=== PATIENT | female | born 1980 | race Two or more races ===

== ENCOUNTER 2018-07-22 00:23 | Inpatient (IN) | payer OTHER, BC ==
[2018-07-22] MEDS ORDERED: Terbutaline 1 MG/ML SDV SUBCUT PRN (01:15)
[2018-07-22] MEDS ORDERED: Nalbuphine 10 MG/1 ML Vial IVPUSH PRN (01:15)
[2018-07-22] MEDS ORDERED: Oxytocin/0.9 % Sodium Chloride 30 UNIT/500 ML BAG IV SCH ×2 (01:15)
[2018-07-22] MEDS ORDERED: Lidocaine 1% 50 ML MDV INJECT PRN (01:15)
[2018-07-22] MEDS ORDERED: Sodium Chloride 0.9% 2.5 ML Syringe FLUSH PRN (01:15)
[2018-07-22] MEDS ORDERED: Sodium Chloride 0.9% 10 ML SDV IV PRN (01:15)
[2018-07-22] MEDS ORDERED: Methylergonovine 0.2 MG/1 ML Amp IM PRN (01:15)
[2018-07-22] MEDS ORDERED: Butorphanol 1 MG/ML SDV IVPUSH PRN (01:15)
[2018-07-22] MEDS ORDERED: Carboprost Tromethamine 250 MCG/1 ML Amp IM PRN (01:15)
[2018-07-22] MEDS ORDERED: Ampicillin 2 GM in Sodium Chloride 0.9% 100 ML IV ONE (01:15)
[2018-07-22] MEDS ORDERED: Tranexamic Acid 1,000 MG in Sodium Chloride 0.9% 100 ML IV PRN (01:15)
[2018-07-22] MEDS ORDERED: Ondansetron 4 MG/2 ML SDV IV PRN (01:15)
[2018-07-22] MEDS ORDERED: Water For Irrigation,Sterile 1,000 ML Container IRR PRN (01:15)
[2018-07-22] MEDS ORDERED: Sodium Chloride 0.9% 10 ML Syringe FLUSH PRN (01:15)
[2018-07-22] MEDS ORDERED: Misoprostol 200 MCG Tab PO PRN (01:15)
[2018-07-22] MEDS: Misoprostol 25 MCG (1/4 of 100 MCG) Tab PO PRN ×2 (02:42→07:51)
[2018-07-22] MEDS: Misoprostol 25 MCG (1/4 of 100 MCG) Tab VAG PRN ×2 (02:42→07:55)
[2018-07-22] MEDS ORDERED: Labetalol 20 MG/4 ML Syringe IVPUSH ONE (02:59)
[2018-07-22] MEDS: Ampicillin 1 GM in Sodium Chloride 0.9% 50 ML IV SCH ×3 (06:25→13:53)
[2018-07-22] MEDS ORDERED: Ampicillin 1 GM in Sodium Chloride 0.9% 50 ML IV ONE (06:30)
[2018-07-22] MEDS: Labetalol 100 MG Tab PO SCH (08:24)
--- NOTE | 2018-07-22 09:24 | PCM.LDHP ---
L&D History of Present Illness - General Date of Service: 07/22/18 Admit Problem/Dx: Patient Status Order with Admit Dx/Problem 07/22/18 01:16 Patient Status [ADT] Routine Admission Diagnosis/Problem Admission Diagnosis/Problem - planned Source of Information: Patient History Limitations: Reports: No Limitations - History of Present Illness Improves with: Reports: None Worsens with: Reports: None Associated Symptoms: Reports: N - Related Data Allergies/Adverse Reactions: Allergies Allergy/AdvReac Type Severity Reaction Status Date / Time No Known Allergies Allergy Verified 06/16/18 10:16 Home Medications: Home Meds Labetalol [Normodyne] 100 mg PO DAILY 06/16/18 [History] Past Medical History - Past Health History Medical/Surgical History: Denies Medical/Surgical History 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 & Family History - Family History Family Medical History: Noncontributory Cardiac: Reports: Hypertension - Tobacco Use Smoking Status *Q: Former Smoker Years of Tobacco use: 10 Used Tobacco, but Quit: No Second Hand Smoke Exposure: No - Caffeine Use Caffeine Use: Reports: Coffee - Recreational Drug Use Recreational Drug Use: No H&P Review of Systems - Review of Systems: Review Of Systems: See Below General: Reports: No Symptoms HEENT: Reports: No Symptoms Pulmonary: Reports: No Symptoms Cardiovascular: Reports: No Symptoms Gastrointestinal: Reports: No Symptoms Genitourinary: Reports: No Symptoms Musculoskeletal: Reports: No Symptoms Skin: Reports: No Symptoms Psychiatric: Reports: No Symptoms Neurological: Reports: No Symptoms Hematologic/Lymphatic: Reports: No Symptoms Immunologic: Reports: No Symptoms L&D Exam - Exam Exam: See Below - Vital Signs Vital Signs: Last Vital Signs Temp Pulse 79 07/22/18 08:24 Resp BP 201/102 H 07/22/18 08:24 Pulse Ox Weight: 62.142 kg - OB Specific Fundal Height In cm: 35 Contraction Intensity: Mild to Moderate Movement: Active Heart Tones: Present Presentation: Vertex - Everett Score Everett Score Cervix Position: Midposition Everett Score Consistency: Soft Everett Score Effacement: 51-70% Everett Score Dilation: 1-2 cm Everett Score Infant's Station: -3 Everett Score Total: 6 - Exam General: Alert, Oriented HEENT: PERRLA, Conjunctiva Clear, EACs Clear, EOMI, Hearing Intact, Mucosa Moist & [place], Nares Patent, Normal Nasal Septum, Posterior Pharynx Clear, TMs Clear Neck: Supple, Trachea Midline Lungs: Clear to Auscultation, Normal Respiratory Effort Cardiovascular: Regular Rate, Regular Rhythm GI/Abdominal Exam: Normal Bowel Sounds, Soft, Non-Tender, No Organomegaly, No Distention, No Abnormal Bruit, No Mass, Pelvis Stable Rectal Exam: Normal Exam, Normal Rectal Tone Genitourinary: Normal external exam, Normal bimanual exam, Normal speculum exam Back Exam: Normal Inspection, Full Range of Motion Extremities: Normal Inspection, Normal Range of Motion, Non-Tender, No Pedal Edema, Normal Capillary Refill Skin: Warm, Dry, Intact Neurological: Cranial Nerves Intact, Reflexes Equal Bilateral Psychiatric: Alert, Normal Affect, Normal Mood - Patient Data Lab Results Last 24 hrs: Laboratory Results - last 24 hr 07/22/18 07/22/18 Range/Units 01:45 01:45 WBC 11.32 H (4.0-11.0) K/uL RBC 4.15 L (4.30-5.90) M/uL Hgb 13.0 (12.0-16.0) g/dL Hct 38.7 (36.0-46.0) % MCV 93.3 (80.0-98.0) fL MCH 31.3 (27.0-32.0) pg MCHC 33.6 (31.0-37.0) g/dL RDW Std Deviation 40.0 (28.0-62.0) fl RDW Coeff of Holly 12 (11.0-15.0) % Plt Count 223 (150-400) K/uL MPV 10.90 (7.40-12.00) fL Blood Type A POSITIVE Antibody Screen NEGATIVE Result Diagrams: 07/22/18 01:45 Problem List Initiated/Reviewed/Updated: Yes Orders Last 24hrs: Active Orders 24 hr Category Date Time Status Patient Status [ADT] Routine ADT 07/22/18 01:16 Active Communication Order [RC] ASDIRECTED Care 07/22/18 01:16 Active Communication Order [RC] ASDIRECTED Care 07/22/18 01:16 Active Communication Order [RC] ASDIRECTED Care 07/22/18 01:16 Active Heart Tones [RC] CONTINUOUS Care 07/22/18 01:16 Active Non Stress Test [RC] PER UNIT ROUTINE Care 07/22/18 01:16 Active May Shower [RC] ASDIRECTED Care 07/22/18 01:16 Active Notify Provider [RC] PRN Care 07/22/18 01:16 Active Notify Provider [RC] PRN Care 07/22/18 01:16 Active Notify Provider [RC] PRN Care 07/22/18 01:16 Active Notify Provider [RC] STAT Care 07/22/18 01:16 Active Up ad Jayashree [RC] ASDIRECTED Care 07/22/18 01:16 Active Vaginal Exam [RC] PRN Care 07/22/18 01:16 Active Vital Signs [RC] PER UNIT ROUTINE Care 07/22/18 01:16 Active Regular Diet [DIET] Diet 07/22/18 Breakfast Active Ampicillin 1 gm Med 07/22/18 06:30 Active Sodium Chloride 0.9% [Normal Saline] 50 ml IV Q4H Butorphanol [Stadol] Med 07/22/18 01:15 Active 1 mg IVPUSH Q1H PRN Carboprost Tromethamine [Hemabate DS] Med 07/22/18 01:15 Active 250 mcg IM ASDIRECTED PRN Labetalol [Normodyne] Med 07/22/18 09:00 Active 100 mg PO BID Lactated Ringers [Ringers, Lactated] 1,000 ml Med 07/22/18 01:15 Active IV ASDIRECTED Lidocaine 1% [Xylocaine 1%] Med 07/22/18 01:15 Active 50 ml INJECT ONETIME PRN Methylergonovine [Methergine] Med 07/22/18 01:15 Active 0.2 mg IM ASDIRECTED PRN Nalbuphine [Nubain] Med 07/22/18 01:15 Active 10 mg IVPUSH Q1H PRN Ondansetron [Zofran] Med 07/22/18 01:15 Active 4 mg IV Q4H PRN Oxytocin/0.9 % Sodium Chloride [Oxytocin 30 Unit/500 ML Med 07/22/18 01:15 Active -NS] 30 unit in 500 ml IV TITRATE Oxytocin/0.9 % Sodium Chloride [Oxytocin 30 Unit/500 ML Med 07/22/18 01:15 Active -NS] 30 unit in 500 ml IV TITRATE Sodium Chloride 0.9% [Normal Saline] Med 07/22/18 01:15 Active 10 ml IV ASDIRECTED PRN Sodium Chloride 0.9% [Saline Flush] Med 07/22/18 01:15 Active 10 ml FLUSH ASDIRECTED PRN Sodium Chloride 0.9% [Saline Flush] Med 07/22/18 01:15 Active 2.5 ml FLUSH ASDIRECTED PRN Terbutaline [Brethine] Med 07/22/18 01:15 Active 0.25 mg SUBCUT ASDIRECTED PRN Tranexamic Acid [Cyklokapron] 1,000 mg Med 07/22/18 01:15 Active Sodium Chloride 0.9% [Normal Saline] 100 ml IV ONETIME Water For Irrigation,Sterile [Sterile Water for Med 07/22/18 01:15 Active Irrigation] 1,000 ml IRR ASDIRECTED PRN miSOPROStol [Cytotec] Med 07/22/18 01:15 Active 200 mcg PO ONETIME PRN miSOPROStol [Cytotec] Med 07/22/18 01:15 Active 25 mcg PO Q4H PRN miSOPROStol [Cytotec] Med 07/22/18 01:15 Active 25 mcg VAG Q4H PRN Scalp Electrode [WOMSER] Per Unit Routine Oth 07/22/18 01:16 Ordered Medication Administration Instruction [OM.PC] Q3H Oth 07/22/18 01:30 Ordered Peripheral IV Insertion Adult [OM.PC] Routine Oth 07/22/18 01:16 Ordered Resuscitation Status Routine Resus Stat 07/22/18 01:15 Ordered Medication Orders Butorphanol Tartrate (Stadol) 1 mg IVPUSH Q1H PRN PRN Reason: Pain Carboprost Tromethamine (Hemabate Ds) 250 mcg IM ASDIRECTED PRN PRN Reason: Post Hemorrhage Lactated Ringer's (Ringers, Lactated) 1,000 mls @ 150 mls/hr IV ASDIRECTED [facility] Oxytocin/Sodium Chloride (Oxytocin 30 Unit/500 Ml-Ns) 30 unit in 500 mls @ 500 mls/hr IV TITRATE [facility]O Oxytocin/Sodium Chloride (Oxytocin 30 Unit/500 Ml-Ns) 30 unit in 500 mls @ 2 mls/hr IV TITRATE [facility]ALO; Protocol Tranexamic Acid 1,000 mg/ (Sodium Chloride) 110 mls @ 660 mls/hr IV ONETIME PRN PRN Reason: Bleeding Ampicillin Sodium 1 gm/ Sodium (Chloride) 50 mls @ 100 mls/hr IV Q4H [facility] Last Admin: 07/22/18 06:25 Dose: 100 mls/hr Labetalol HCl (Normodyne) 100 mg PO BID [facility] Last Admin: 07/22/18 08:24 Dose: 100 mg Lidocaine HCl (Xylocaine 1%) 50 ml INJECT ONETIME PRN PRN Reason: Laceration repair Methylergonovine Maleate (Methergine) 0.2 mg IM ASDIRECTED PRN PRN Reason: Post Hemorrhage Misoprostol (Cytotec) 200 mcg PO ONETIME PRN PRN Reason: Post Hemorrhage Misoprostol (Cytotec) 25 mcg PO Q4H PRN PRN Reason: Cervical Ripening Last Admin: 07/22/18 07:51 Dose: 25 mcg Admin: 07/22/18 02:42 Dose: 25 mcg Misoprostol (Cytotec) 25 mcg VAG Q4H PRN PRN Reason: Cervical Ripening Last Admin: 07/22/18 07:55 Dose: 25 mcg Admin: 07/22/18 02:42 Dose: 25 mcg Nalbuphine HCl (Nubain) 10 mg IVPUSH Q1H PRN PRN Reason: Pain (severe 7-10) Ondansetron HCl (Zofran) 4 mg IV Q4H PRN PRN Reason: Nausea/Vomiting Sodium Chloride (Saline Flush) 10 ml FLUSH ASDIRECTED PRN PRN Reason: Keep Vein Open Sodium Chloride (Saline Flush) 2.5 ml FLUSH ASDIRECTED PRN PRN Reason: Keep Vein Open Sodium Chloride (Normal Saline) 10 ml IV ASDIRECTED PRN PRN Reason: IV Use Sterile Water (Sterile Water For Irrigation) 1,000 ml IRR ASDIRECTED PRN PRN Reason: delivery Terbutaline Sulfate (Brethine) 0.25 mg SUBCUT ASDIRECTED PRN PRN Reason: Tacysystole Assessment/Plan Comment:: Chronic Hypertension, IUP 36 wks admitted for elective induction.
[2018-07-22] MEDS ORDERED: Bupivacaine 0.5% 10 ML SDV ONE (12:03)
[2018-07-22] MEDS ORDERED: fentaNYL 100 MCG/2 ML SDV ONE (12:03)
[2018-07-22] MEDS ORDERED: Lidocaine HCl/EPINEPHrine 5 ML IJ ONE (12:04)
[2018-07-22] MEDS ORDERED: Bupivacaine 0.25% 10 ML SDV ONE (12:04)
[2018-07-22] MEDS: Lactated Ringers 1,000 ML IV SCH ×2 (12:23→15:25)
--- NOTE | 2018-07-22 13:14 | PCM.PREANE ---
Preanesthetic Assessment - Anesthesia/Transfusion/Family Hx Anesthesia History: Prior Anesthesia Reaction (history of difficult epidural placement) Family History of Anesthesia Reaction: No Transfusion History: No Prior Transfusion(s) - Review of Systems Pulmonary: No Symptoms Cardiovascular: Other (uncontrolled high blood pressure) Gastrointestinal: Nausea, Vomiting Neurological: Dizziness (patient got dizzy after stadol given) Other: Reports: None - Physical Assessment Pulse: 79 Blood Pressure: 201/102 Vital Signs: Last Vital Signs Temp Pulse 79 07/22/18 08:24 Resp BP 201/102 H 07/22/18 08:24 Pulse Ox Height: 5 ft 2 in Weight: 62.142 kg ASA Class: 3 (uncontrolled hypertension) Mental Status: Alert & Oriented x3 Airway Class: Mallampati = 2 Dentition: Reports: Normal Dentition ROM/Head Extension: Full Lungs: Clear to Auscultation Cardiovascular: Regular Rhythm - Lab Values: Laboratory Last Values WBC 11.32 K/uL (4.0-11.0) H 07/22/18 01:45 RBC 4.15 M/uL (4.30-5.90) L 07/22/18 01:45 Hgb 13.0 g/dL (12.0-16.0) 07/22/18 01:45 Hct 38.7 % (36.0-46.0) 07/22/18 01:45 MCV 93.3 fL (80.0-98.0) 07/22/18 01:45 MCH 31.3 pg (27.0-32.0) 07/22/18 01:45 MCHC 33.6 g/dL (31.0-37.0) 07/22/18 01:45 RDW Std Deviation 40.0 fl (28.0-62.0) 07/22/18 01:45 RDW Coeff of Holly 12 % (11.0-15.0) 07/22/18 01:45 Plt Count 223 K/uL (150-400) 07/22/18 01:45 MPV 10.90 fL (7.40-12.00) 07/22/18 01:45 Blood Type A POSITIVE 07/22/18 01:45 Antibody Screen NEGATIVE 07/22/18 01:45 - Allergies Allergies/Adverse Reactions: Allergies Allergy/AdvReac Type Severity Reaction Status Date / Time No Known Allergies Allergy Verified 06/16/18 10:16 - Blood Blood Available: No - Acknowledgements Anesthesia Type Planned: Epidural Pt an Appropriate Candidate for the Planned Anesthesia: Yes Alternatives and Risks of Anesthesia Discussed w Pt/Guardian: Yes Pt/Guardian Understands and Agrees with Anesthesia Plan: Yes Additional Comments: Discussed the risks and benefits of epidural placement. Discussed with the patient that she is at a higher risk of complications due to her uncontrolled HTN. Agrees to go forth with the epidural placement thinking her blood pressure will decrease once epidural inserted due to pain control. 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 Smoking Status *Q: Former Smoker Tobacco Use Within Last Twelve Months: No Second Hand Smoke Exposure: No Recreational Drug Use History: No - HOME MEDS Home Medications: Home Meds Labetalol [Normodyne] 100 mg PO DAILY 06/16/18 [History] - CURRENT (IN HOUSE) MEDS Current Meds: Current Medications Butorphanol Tartrate (Stadol) 1 mg IVPUSH Q1H PRN PRN Reason: Pain Last Admin: 07/22/18 10:51 Dose: 1 mg Carboprost Tromethamine (Hemabate Ds) 250 mcg IM ASDIRECTED PRN PRN Reason: Post Hemorrhage Lactated Ringer's (Ringers, Lactated) 1,000 mls @ 150 mls/hr IV ASDIRECTED [facility] Last Admin: 07/22/18 12:23 Dose: 999 mls/hr Oxytocin/Sodium Chloride (Oxytocin 30 Unit/500 Ml-Ns) 30 unit in 500 mls @ 500 mls/hr IV TITRATE [facility] Oxytocin/Sodium Chloride (Oxytocin 30 Unit/500 Ml-Ns) 30 unit in 500 mls @ 2 mls/hr IV TITRATE [facility]; Protocol Tranexamic Acid 1,000 mg/ (Sodium Chloride) 110 mls @ 660 mls/hr IV ONETIME PRN PRN Reason: Bleeding Ampicillin Sodium 1 gm/ Sodium (Chloride) 50 mls @ 100 mls/hr IV Q4H [facility] Last Admin: 07/22/18 10:00 Dose: 100 mls/hr Labetalol HCl (Normodyne) 100 mg PO BID [facility] Last Admin: 07/22/18 08:24 Dose: 100 mg Lidocaine HCl (Xylocaine 1%) 50 ml INJECT ONETIME PRN PRN Reason: Laceration repair Methylergonovine Maleate (Methergine) 0.2 mg IM ASDIRECTED PRN PRN Reason: Post Hemorrhage Misoprostol (Cytotec) 200 mcg PO ONETIME PRN PRN Reason: Post Hemorrhage Misoprostol (Cytotec) 25 mcg PO Q4H PRN PRN Reason: Cervical Ripening Last Admin: 07/22/18 07:51 Dose: 25 mcg Misoprostol (Cytotec) 25 mcg VAG Q4H PRN PRN Reason: Cervical Ripening Last Admin: 07/22/18 07:55 Dose: 25 mcg Nalbuphine HCl (Nubain) 10 mg IVPUSH Q1H PRN PRN Reason: Pain (severe 7-10) Ondansetron HCl (Zofran) 4 mg IV Q4H PRN PRN Reason: Nausea/Vomiting Sodium Chloride (Saline Flush) 10 ml FLUSH ASDIRECTED PRN PRN Reason: Keep Vein Open Sodium Chloride (Saline Flush) 2.5 ml FLUSH ASDIRECTED PRN PRN Reason: Keep Vein Open Sodium Chloride (Normal Saline) 10 ml IV ASDIRECTED PRN PRN Reason: IV Use Sterile Water (Sterile Water For Irrigation) 1,000 ml IRR ASDIRECTED PRN PRN Reason: delivery Terbutaline Sulfate (Brethine) 0.25 mg SUBCUT ASDIRECTED PRN PRN Reason: Tacysystole Discontinued Medications Bupivacaine HCl (Sensorcaine-Mpf 0.5%) Confirm Administered Dose 10 ml .ROUTE .STK-MED ONE Stop: 07/22/18 12:04 Bupivacaine HCl (Sensorcaine-Mpf 0.25%) Confirm Administered Dose 10 ml .ROUTE .STK-MED ONE Stop: 07/22/18 12:05 Fentanyl (Sublimaze) Confirm Administered Dose 100 mcg .ROUTE .STK-MED ONE Stop: 07/22/18 12:04 Ampicillin Sodium 2 gm/ Sodium (Chloride) 100 mls @ 200 mls/hr IV ONETIME ONE Stop: 07/22/18 01:44 Last Admin: 07/22/18 02:50 Dose: 200 mls/hr Ampicillin Sodium 1 gm/ Sodium (Chloride) 50 mls @ 100 mls/hr IV ONETIME ONE Stop: 07/22/18 06:59 Fentanyl/Bupivacaine HCl (Hpxexixa-Vshru-Nk 2 Mcg/Ml-0.125%) Confirm Administered Dose 100 mls @ as directed .ROUTE .STK-MED ONE Stop: 07/22/18 12:04 Labetalol HCl (Normodyne) 20 mg IVPUSH NOW ONE; Protocol Stop: 07/22/18 03:00 Last Admin: 07/22/18 03:14 Dose: 20 mg Lidocaine/Epinephrine (Lidocaine 1.5%-Epi 1:200,000) Confirm Administered Dose 5 ml IJ .STK-MED ONE Stop: 07/22/18 12:05
[2018-07-22] MEDS ORDERED: Bisacodyl 10 MG Supp RECTAL PRN (16:00)
[2018-07-22] MEDS ORDERED: Benzocaine/Menthol 20%-0.5% Spray 78 GM Cannister TOP PRN (16:00)
[2018-07-22] MEDS ORDERED: Docusate Sodium 100 MG Cap PO PRN (16:00)
[2018-07-22] MEDS ORDERED: Witch Hazel Medicated Pads 40/Jar TOP PRN (16:00)
[2018-07-22] MEDS ORDERED: Lanolin 100% Cream 7 GM Tube TOP PRN (16:00)
[2018-07-22] MEDS ORDERED: oxyCODONE 5 MG Tab PO PRN (16:00)
[2018-07-22] MEDS ORDERED: Acetaminophen 500 MG Tab PO PRN ×2 (16:00)
[2018-07-22] MEDS ORDERED: Ibuprofen 400 MG Tab PO PRN (16:00)
[2018-07-22] MEDS ORDERED: Labetalol 100 MG Tab PO ONE (16:08)
--- NOTE | 2018-07-22 17:37 | OR ---
SURGEON: Roshan Wilburn MD DATE OF PROCEDURE: 07/22/2018 Ms. Singh is a 38-year-old patient. She is para 2-0-0-2. She is followed in our clinic primarily by me. Her is complicated by chronic hypertension. The patient was on medication prior to that, and we continued her on her medication. The patient started having scheduled regular NST at 30 weeks and all her NST was reactive at 36 weeks. The patient is admitted for elective induction because her blood pressures continued to go up slowly in spite of the antihypertensive medication. The patient is induced with Cytotec and Pitocin, and she had epidural anesthesia for labor analgesia. I did artificial rupture of the membrane at 3 cm. The patient's blood pressure was fluctuating up and down through the entire process of labor. She progressed rather quickly after rupturing her membrane and she was able to accomplish a normal spontaneous vaginal delivery of a male fetus, cried immediately. scores of 7 and 9. The placenta delivered spontaneous, complete, and intact. There was no perineal or labial laceration. Estimated blood loss in this delivery was 300 mL. heart rate was category 1 through the entire process of labor. There was no complication in the Labor and Delivery. SEAN / CYNTHIA /[id number]
--- NOTE | 2018-07-23 08:09 | PCM.PNPP ---
- General Info Date of Service: 07/23/18 Functional Status: Reports: Pain Controlled - Review of Systems General: Reports: No Symptoms HEENT: Reports: No Symptoms Pulmonary: Reports: No Symptoms Cardiovascular: Reports: No Symptoms Gastrointestinal: Reports: No Symptoms Genitourinary: Reports: No Symptoms Musculoskeletal: Reports: No Symptoms Skin: Reports: No Symptoms Neurological: Reports: No Symptoms Psychiatric: Reports: No Symptoms - Patient Data Vital Signs - Most Recent: Last Vital Signs Temp 36.6 C 07/23/18 05:20 Pulse 67 07/23/18 05:20 Resp 16 07/23/18 05:20 BP 171/92 H 07/23/18 05:20 Pulse Ox 98 07/23/18 05:20 Weight - Most Recent: 62.142 kg I&O - Last 24 Hours: Intake & Output 07/22/18 07/23/18 07/23/18 22:59 06:59 14:59 Intake Total 1650 Balance 1650 Lab Results - Last 24 Hours: Laboratory Results - last 24 hr 07/23/18 Range/Units 05:30 Hgb 11.1 L (12.0-16.0) g/dL Hct 32.9 L (36.0-46.0) % Med Orders - Current: Current Medications Acetaminophen (Tylenol Extra Strength) 500 mg PO Q4H PRN PRN Reason: Pain Acetaminophen (Tylenol Extra Strength) 1,000 mg PO Q4H PRN PRN Reason: Pain Benzocaine/Menthol (Dermoplast Pain Relief 20%-0.5% [place]) 78 gm TOP ASDIRECTED PRN PRN Reason: Perineal Comfort Measure Last Admin: 07/22/18 16:17 Dose: 1 canister Bisacodyl (Dulcolax) 10 mg RECTAL ONETIME PRN PRN Reason: Constipation Butorphanol Tartrate (Stadol) 1 mg IVPUSH Q1H PRN PRN Reason: Pain Last Admin: 07/22/18 10:51 Dose: 1 mg Carboprost Tromethamine (Hemabate Ds) 250 mcg IM ASDIRECTED PRN PRN Reason: Post Hemorrhage Docusate Sodium (Colace) 100 mg PO BID PRN PRN Reason: Constipation Emollient Ointment (Lansinoh Hpa) 0 gm TOP ASDIRECTED PRN PRN Reason: Sore Nipples Lisinopril/HCTZ (Lisinopril-Hctz 10-12.5 Mg) 1 tab PO DAILY [facility] Lactated Ringer's (Ringers, Lactated) 1,000 mls @ 150 mls/hr IV ASDIRECTED [facility] Last Admin: 07/22/18 15:25 Dose: 999 mls/hr Oxytocin/Sodium Chloride (Oxytocin 30 Unit/500 Ml-Ns) 30 unit in 500 mls @ 500 mls/hr IV TITRATE [facility] Oxytocin/Sodium Chloride (Oxytocin 30 Unit/500 Ml-Ns) 30 unit in 500 mls @ 2 mls/hr IV TITRATE [facility]; Protocol Last Titration: 07/22/18 13:37 Dose: 4 munits/min, 4 mls/hr Tranexamic Acid 1,000 mg/ (Sodium Chloride) 110 mls @ 660 mls/hr IV ONETIME PRN PRN Reason: Bleeding Ampicillin Sodium 1 gm/ Sodium (Chloride) 50 mls @ 100 mls/hr IV Q4H [facility] Last Admin: 07/22/18 13:53 Dose: 100 mls/hr Ibuprofen (Motrin) 400 mg PO Q4H PRN PRN Reason: Pain Ibuprofen (Motrin) 800 mg PO Q6H PRN PRN Reason: Pain Labetalol HCl (Normodyne) 100 mg PO BID [facility] Last Admin: 07/22/18 08:24 Dose: 100 mg Lidocaine HCl (Xylocaine 1%) 50 ml INJECT ONETIME PRN PRN Reason: Laceration repair Methylergonovine Maleate (Methergine) 0.2 mg IM ASDIRECTED PRN PRN Reason: Post Hemorrhage Misoprostol (Cytotec) 200 mcg PO ONETIME PRN PRN Reason: Post Hemorrhage Misoprostol (Cytotec) 25 mcg PO Q4H PRN PRN Reason: Cervical Ripening Last Admin: 07/22/18 07:51 Dose: 25 mcg Misoprostol (Cytotec) 25 mcg VAG Q4H PRN PRN Reason: Cervical Ripening Last Admin: 07/22/18 07:55 Dose: 25 mcg Nalbuphine HCl (Nubain) 10 mg IVPUSH Q1H PRN PRN Reason: Pain (severe 7-10) Ondansetron HCl (Zofran) 4 mg IV Q4H PRN PRN Reason: Nausea/Vomiting Oxycodone HCl (Oxycodone) 5 mg PO Q2H PRN PRN Reason: Pain Sodium Chloride (Saline Flush) 10 ml FLUSH ASDIRECTED PRN PRN Reason: Keep Vein Open Sodium Chloride (Saline Flush) 2.5 ml FLUSH ASDIRECTED PRN PRN Reason: Keep Vein Open Sodium Chloride (Normal Saline) 10 ml IV ASDIRECTED PRN PRN Reason: IV Use Sterile Water (Sterile Water For Irrigation) 1,000 ml IRR ASDIRECTED PRN PRN Reason: delivery Terbutaline Sulfate (Brethine) 0.25 mg SUBCUT ASDIRECTED PRN PRN Reason: Tacysystole Witch Irene (Tucks) 1 pad TOP ASDIRECTED PRN PRN Reason: comfort care Discontinued Medications Bupivacaine HCl (Sensorcaine-Mpf 0.5%) Confirm Administered Dose 10 ml .ROUTE .STK-MED ONE Stop: 07/22/18 12:04 Bupivacaine HCl (Sensorcaine-Mpf 0.25%) Confirm Administered Dose 10 ml .ROUTE .STK-MED ONE Stop: 07/22/18 12:05 Fentanyl (Sublimaze) Confirm Administered Dose 100 mcg .ROUTE .STK-MED ONE Stop: 07/22/18 12:04 Ampicillin Sodium 2 gm/ Sodium (Chloride) 100 mls @ 200 mls/hr IV ONETIME ONE Stop: 07/22/18 01:44 Last Admin: 07/22/18 02:50 Dose: 200 mls/hr Ampicillin Sodium 1 gm/ Sodium (Chloride) 50 mls @ 100 mls/hr IV ONETIME ONE Stop: 07/22/18 06:59 Fentanyl/Bupivacaine HCl (Zwbebfat-Gbiao-Xb 2 Mcg/Ml-0.125%) Confirm Administered Dose 100 mls @ as directed .ROUTE .STK-MED ONE Stop: 07/22/18 12:04 Labetalol HCl (Normodyne) 20 mg IVPUSH NOW ONE; Protocol Stop: 07/22/18 03:00 Last Admin: 07/22/18 03:14 Dose: 20 mg Labetalol HCl (Normodyne) 100 mg PO STAT ONE Stop: 07/22/18 16:09 Last Admin: 07/22/18 16:15 Dose: 100 mg Lidocaine/Epinephrine (Lidocaine 1.5%-Epi 1:200,000) Confirm Administered Dose 5 ml IJ .STK-MED ONE Stop: 07/22/18 12:05 - Infant Interaction Support Person: - Recovery Exam Fundal Tone: Firm, Firms with Massage Fundal Level: 1 Fingerbreadths Below Umbilicus Fundal Placement: Midline Lochia Amount: Small, Moderate, Clots/Tissue Present Lochia Color: Rubra/Red Perineum Description: Intact, Minimal Bruising/Swelling Episiotomy/Laceration: None Bladder Status: Voiding Urinary Elimination: Voided - Exam General: Alert, Oriented HEENT: Pupils Equal Neck: Supple Lungs: Clear to Auscultation, Normal Respiratory Effort Cardiovascular: Regular Rate, Regular Rhythm GI/Abdominal Exam: Normal Bowel Sounds, Soft, Non-Tender, No Organomegaly, No Distention, No Abnormal Bruit, No Mass, Pelvis Stable Extremities: Normal Inspection, Normal Range of Motion, Non-Tender, No Pedal Edema, Normal Capillary Refill Skin: Warm, Dry, Intact Wound/Incisions: Healing Well Neurological: No New Focal Deficit Psy/Mental Status: Alert, Normal Affect, Normal Mood - Problem List Review Problem List Initiated/Reviewed/Updated: Yes - My Orders Last 24 Hours: My Active Orders 07/22/18 09:00 Labetalol [Normodyne] 100 mg PO BID 07/22/18 16:00 Acetaminophen [Tylenol Extra Strength] 1,000 mg PO Q4H PRN Acetaminophen [Tylenol Extra Strength] 500 mg PO Q4H PRN Benzocaine/Menthol [Dermoplast Pain Relief 20%-0.5% [place]] 78 gm TOP ASDIRECTED PRN Bisacodyl [Dulcolax] 10 mg RECTAL ONETIME PRN Docusate Sodium [Colace] 100 mg PO BID PRN Ibuprofen [Motrin] 400 mg PO Q4H PRN Ibuprofen [Motrin] 800 mg PO Q6H PRN Lanolin [Lansinoh HPA] See Dose Instructions TOP ASDIRECTED PRN Witch Irene [Tucks] 1 pad TOP ASDIRECTED PRN oxyCODONE 5 mg PO Q2H PRN 07/22/18 16:01 Patient Status [ADT] Routine Up ad Jayashree [RC] ASDIRECTED Vital Signs [RC] PER UNIT ROUTINE Assess Lochia [WOMSER] Per Unit Routine Assess Uterine Involution [WOMSER] Per Unit Routine Peripheral IV Discontinue [OM.PC] Routine 07/23/18 09:00 Lisinopril/Hydrochlorothiazide [Lisinopril-HCTZ 10-12.5 MG] 1 tab PO DAILY - Assessment Assessment:: I'm starting the patient on hydrochlorothiazide and lisinopril to control her blood pressure. - Plan Plan:: Chronic Hypertension, IUP 36 wks admitted for elective induction.
[2018-07-23] MEDS: Ibuprofen 800 MG Tab PO PRN (08:59)
[2018-07-23] MEDS: Labetalol 100 MG Tab PO SCH (09:00)
[2018-07-23] MEDS: Lisinopril/Hydrochlorothiazide 10-12.5 MG Tab PO SCH (09:00)
[2018-07-23] MEDS: Ampicillin 1 GM in Sodium Chloride 0.9% 50 ML IV SCH ×2 (10:06→10:07)
[2018-07-24] MEDS: Labetalol 100 MG Tab PO SCH ×2 (00:53→08:57)
[2018-07-24] MEDS: Ibuprofen 800 MG Tab PO PRN (00:54)
[2018-07-24] MEDS: Ampicillin 1 GM in Sodium Chloride 0.9% 50 ML IV SCH (03:39)
[2018-07-24] MEDS: Lisinopril/Hydrochlorothiazide 10-12.5 MG Tab PO SCH (08:57)
--- NOTE | 2018-07-24 11:35 | PCM.DCSUM1 ---
Discharge Summary - Hospital Course Diagnosis: Stroke: No - Discharge Data Discharge Date: 07/24/18 Discharge Disposition: Home, Self-Care 01 Condition: Good - Patient Instructions Diet: Usual Diet as Tolerated Driving: Do Not Drive Showering/Bathing: May Shower - Discharge Plan Home Medications: Home Meds Labetalol [Normodyne] 100 mg PO DAILY 06/16/18 [History] Referrals: [facility] [Outside] Roshan Wilburn MD [Physician] - 09/03/18 1:30 pm - Discharge Summary/Plan Comment DC Time >30 min.: Yes - General Info Date of Service: 07/24/18 Functional Status: Reports: Pain Controlled - Review of Systems General: Reports: No Symptoms HEENT: Reports: No Symptoms Pulmonary: Reports: No Symptoms Cardiovascular: Reports: No Symptoms Gastrointestinal: Reports: No Symptoms Genitourinary: Reports: No Symptoms Musculoskeletal: Reports: No Symptoms Skin: Reports: No Symptoms Neurological: Reports: No Symptoms Psychiatric: Reports: No Symptoms - Patient Data Vitals - Most Recent: Last Vital Signs Temp 36.4 C 07/24/18 07:00 Pulse 63 07/24/18 08:57 Resp 14 07/24/18 07:00 BP 175/88 H 07/24/18 08:57 Pulse Ox 99 07/24/18 07:00 Weight - Most Recent: 62.142 kg Med Orders - Current: Current Medications Acetaminophen (Tylenol Extra Strength) 500 mg PO Q4H PRN PRN Reason: Pain Acetaminophen (Tylenol Extra Strength) 1,000 mg PO Q4H PRN PRN Reason: Pain Last Admin: 07/23/18 20:42 Dose: 1,000 mg Benzocaine/Menthol (Dermoplast Pain Relief 20%-0.5% [place]) 78 gm TOP ASDIRECTED PRN PRN Reason: Perineal Comfort Measure Last Admin: 07/22/18 16:17 Dose: 1 canister Bisacodyl (Dulcolax) 10 mg RECTAL ONETIME PRN PRN Reason: Constipation Butorphanol Tartrate (Stadol) 1 mg IVPUSH Q1H PRN PRN Reason: Pain Last Admin: 07/22/18 10:51 Dose: 1 mg Carboprost Tromethamine (Hemabate Ds) 250 mcg IM ASDIRECTED PRN PRN Reason: Post Hemorrhage Docusate Sodium (Colace) 100 mg PO BID PRN PRN Reason: Constipation Emollient Ointment (Lansinoh Hpa) 0 gm TOP ASDIRECTED PRN PRN Reason: Sore Nipples Lisinopril/HCTZ (Lisinopril-Hctz 10-12.5 Mg) 1 tab PO DAILY [facility] Last Admin: 07/24/18 08:57 Dose: 1 tab Lactated Ringer's (Ringers, Lactated) 1,000 mls @ 150 mls/hr IV ASDIRECTED [facility] Last Admin: 07/22/18 15:25 Dose: 999 mls/hr Oxytocin/Sodium Chloride (Oxytocin 30 Unit/500 Ml-Ns) 30 unit in 500 mls @ 500 mls/hr IV TITRATE LALO Oxytocin/Sodium Chloride (Oxytocin 30 Unit/500 Ml-Ns) 30 unit in 500 mls @ 2 mls/hr IV TITRATE [facility]; Protocol Last Titration: 07/22/18 13:37 Dose: 4 munits/min, 4 mls/hr Tranexamic Acid 1,000 mg/ (Sodium Chloride) 110 mls @ 660 mls/hr IV ONETIME PRN PRN Reason: Bleeding Ibuprofen (Motrin) 400 mg PO Q4H PRN PRN Reason: Pain Ibuprofen (Motrin) 800 mg PO Q6H PRN PRN Reason: Pain Last Admin: 07/24/18 00:54 Dose: 800 mg Labetalol HCl (Normodyne) 100 mg PO BID [facility] Last Admin: 07/24/18 08:57 Dose: 100 mg Lidocaine HCl (Xylocaine 1%) 50 ml INJECT ONETIME PRN PRN Reason: Laceration repair Methylergonovine Maleate (Methergine) 0.2 mg IM ASDIRECTED PRN PRN Reason: Post Hemorrhage Misoprostol (Cytotec) 200 mcg PO ONETIME PRN PRN Reason: Post Hemorrhage Misoprostol (Cytotec) 25 mcg PO Q4H PRN PRN Reason: Cervical Ripening Last Admin: 07/22/18 07:51 Dose: 25 mcg Misoprostol (Cytotec) 25 mcg VAG Q4H PRN PRN Reason: Cervical Ripening Last Admin: 07/22/18 07:55 Dose: 25 mcg Nalbuphine HCl (Nubain) 10 mg IVPUSH Q1H PRN PRN Reason: Pain (severe 7-10) Ondansetron HCl (Zofran) 4 mg IV Q4H PRN PRN Reason: Nausea/Vomiting Oxycodone HCl (Oxycodone) 5 mg PO Q2H PRN PRN Reason: Pain Last Admin: 07/24/18 00:53 Dose: 5 mg Sodium Chloride (Saline Flush) 10 ml FLUSH ASDIRECTED PRN PRN Reason: Keep Vein Open Sodium Chloride (Saline Flush) 2.5 ml FLUSH ASDIRECTED PRN PRN Reason: Keep Vein Open Sodium Chloride (Normal Saline) 10 ml IV ASDIRECTED PRN PRN Reason: IV Use Sterile Water (Sterile Water For Irrigation) 1,000 ml IRR ASDIRECTED PRN PRN Reason: delivery Terbutaline Sulfate (Brethine) 0.25 mg SUBCUT ASDIRECTED PRN PRN Reason: Tacysystole Witch Irene (Tucks) 1 pad TOP ASDIRECTED PRN PRN Reason: comfort care Discontinued Medications Bupivacaine HCl (Sensorcaine-Mpf 0.5%) Confirm Administered Dose 10 ml .ROUTE .STK-MED ONE Stop: 07/22/18 12:04 Last Admin: 07/23/18 09:16 Dose: Not Given Bupivacaine HCl (Sensorcaine-Mpf 0.25%) Confirm Administered Dose 10 ml .ROUTE .STK-MED ONE Stop: 07/22/18 12:05 Last Admin: 07/23/18 09:17 Dose: Not Given Fentanyl (Sublimaze) Confirm Administered Dose 100 mcg .ROUTE .STK-MED ONE Stop: 07/22/18 12:04 Last Admin: 07/23/18 09:16 Dose: Not Given Ampicillin Sodium 2 gm/ Sodium (Chloride) 100 mls @ 200 mls/hr IV ONETIME ONE Stop: 07/22/18 01:44 Last Admin: 07/22/18 02:50 Dose: 200 mls/hr Ampicillin Sodium 1 gm/ Sodium (Chloride) 50 mls @ 100 mls/hr IV ONETIME ONE Stop: 07/22/18 06:59 Ampicillin Sodium 1 gm/ Sodium (Chloride) 50 mls @ 100 mls/hr IV Q4H [facility] Last Admin: 07/24/18 03:39 Dose: Not Given Fentanyl/Bupivacaine HCl (Rqpaocfh-Qzewb-Xp 2 Mcg/Ml-0.125%) Confirm Administered Dose 100 mls @ as directed .ROUTE .STK-MED ONE Stop: 07/22/18 12:04 Last Admin: 07/23/18 09:16 Dose: Not Given Labetalol HCl (Normodyne) 20 mg IVPUSH NOW ONE; Protocol Stop: 07/22/18 03:00 Last Admin: 07/22/18 03:14 Dose: 20 mg Labetalol HCl (Normodyne) 100 mg PO STAT ONE Stop: 07/22/18 16:09 Last Admin: 07/22/18 16:15 Dose: 100 mg Lidocaine/Epinephrine (Lidocaine 1.5%-Epi 1:200,000) Confirm Administered Dose 5 ml IJ .STK-MED ONE Stop: 07/22/18 12:05 Last Admin: 07/23/18 09:16 Dose: Not Given - Exam General: Reports: Alert, Oriented HEENT: Reports: Pupils Equal, Pupils Reactive, EOMI, Mucous Membr. Moist/[place] Neck: Reports: Supple Lungs: Reports: Clear to Auscultation, Normal Respiratory Effort Cardiovascular: Reports: Regular Rate, Regular Rhythm GI/Abdominal Exam: Normal Bowel Sounds, Soft, Non-Tender, No Organomegaly, No Distention, No Abnormal Bruit, No Mass, Pelvis Stable (Female) Exam: Normal External Exam, Normal Speculum Exam, Normal Bimanual Exam Rectal (Female) Exam: Normal Exam, Normal Rectal Tone Back Exam: Reports: Normal Inspection, Full Range of Motion Extremities: Normal Inspection, Normal Range of Motion, Non-Tender, No Pedal Edema, Normal Capillary Refill Skin: Reports: Warm, Dry, Intact Wound/Incisions: Reports: Healing Well Neurological: Reports: No New Focal Deficit Psy/Mental Status: Reports: Alert, Normal Affect, Normal Mood
== END 2018-07-24 12:50 | disposition home or self-care (01) | DRG 807 ==
LOC: MW.OBCHECK 00:23 → MW.OB 00:27 → INTOOBSV 14:43 → OBSVTOIN 14:43 → MW.OB 15:43 → INTOOBSV 15:43 → OBSVTOIN 15:43 → MW.OB 18:35
PROVIDERS: ADMIT Obstetrics & Gynecology; ATTEND Obstetrics & Gynecology
PROC: 10E0XZZ Delivery of Products of Conception, External Approach (ICD-10-PCS; principal; 2018-07-22)
PROC: 3E033VJ Introduction of Other Hormone into Peripheral Vein, Percutaneous Approach (ICD-10-PCS; principal; 2018-07-22)
PROC: 3E0P7VZ Introduction of Hormone into Female Reproductive, Via Natural or Artificial Opening (ICD-10-PCS; principal; 2018-07-22)
PROC: 10907ZC Drainage of Amniotic Fluid, Therapeutic from Products of Conception, Via Natural or Artificial Opening (ICD-10-PCS; principal; 2018-07-22)
PROC: 3E0R3BZ Introduction of Anesthetic Agent into Spinal Canal, Percutaneous Approach (ICD-10-PCS; 2018-07-22)
PROC: 00HU33Z Insertion of Infusion Device into Spinal Canal, Percutaneous Approach (ICD-10-PCS; 2018-07-22)
DX: O10.92 Unspecified pre-existing hypertension complicating childbirth (principal); Z37.0 Single live birth; Z3A.36 36 weeks gestation of pregnancy; O99.284 Endocrine, nutritional and metabolic diseases complicating childbirth; E78.00 Pure hypercholesterolemia, unspecified; Z87.891 Personal history of nicotine dependence; Z79.899 Other long term (current) drug therapy
CPT/HCPCS: 36415; 51702; 59025; 59409; 85014; 85018; 85027; 86850; 86900; 86901; A9270-GY; J0290; J0595; J2590; J3490; J7030; J7050; J7120

== ENCOUNTER 2021-02-13 15:39 | Emergency (ER) | payer BC ==
[2021-02-13 19:57] LABS: BLOOD UREA NITROGEN,BUN 24 mg/dL (7.0-18.0); CARBON DIOXIDE,CO2 28.8 mmol/L (21.0-32.0); CHLORIDE,CL 100 mmol/L (98-107); GLUCOSE RANDOM 103 mg/dL (74-106); SODIUM,NA 138 mmol/L (136-145)
--- NOTE | 2021-02-13 20:19 | CT ---
HISTORY: Dizzy. COMPARISON: None. TECHNIQUE: Noncontrast axial images were obtained through the brain. FINDINGS: Carranza-white matter differentiation is preserved. No evidence for acute intracranial hemorrhage or infarction. No midline shift or mass effect. The ventricles are nondilated and symmetric. No abnormal intra or extra-axial fluid collection. The bony calvaria are intact. Moderate air-fluid levels within the maxillary sinuses. IMPRESSION: No acute intracranial pathology. Possible maxillary sinusitis. Please note that all CT scans at this facility use dose modulation, iterative reconstruction, and/or weight-based dosing when appropriate to reduce radiation dose to as low as reasonably achievable. Dictated by Pepper Menchaca MD @ 02/13/2021 8:16:54 PM (Electronically Signed)
--- NOTE | 2021-02-13 20:19 | CR ---
HISTORY: Dizzy. COMPARISON: None. FINDINGS: The lungs are clear. No evidence for pneumonia. Heart size and pulmonary vascularity within normal limits. No pleural effusion. The bony structures and soft tissues appear intact. Dictated by Pepper Menchaca MD @ 02/13/2021 8:18:15 PM (Electronically Signed)
--- NOTE | 2021-02-13 20:50 | EDM.PDOC ---
ED HPI GENERAL MEDICAL PROBLEM - General Chief Complaint: Neurological Problem Stated Complaint: headache and numbness Time Seen by Provider: 02/13/21 18:51 Source of Information: Reports: Patient History Limitations: Reports: No Limitations - History of Present Illness INITIAL COMMENTS - FREE TEXT/NARRATIVE: HISTORY AND PHYSICAL: History of present illness: Patient is a 40-year-old female who resents emergency room today with concern of an episode of left-sided facial tingling and low-grade headache that occurred after waking up from a nap. Patient states that she woke up from a nap earlier this afternoon and states that for approximately 7 minutes, she had some left- sided facial tingling that radiated down her left arm and resolved after 7 minutes. Patient states that since then, she has had a low-grade headache. Patient states that in general, she has had some headaches off and on more frequently but denies any head injury or trauma. Patient states that she has had much worse headaches in the past and states that this is not significant as far as pain goes. Patient denies any other symptoms or concerns. Patient denies fever, chills, chest pain, shortness of breath, or cough. Denies neck stiff ness, change in vision, syncope, or near syncope. Denies nausea, vomiting, abdominal pain, diarrhea, constipation, or dysuria. Has not noted any blood in urine or stool. Patient has been eating and drinking appropriately. Review of systems: As per history of present illness and below otherwise all systems reviewed and negative. Past medical history: As per history of present illness and as reviewed below otherwise noncontributory. Surgical history: As per history of present illness and as reviewed below otherwise noncontributory. Social history: See social history for further information Family history: As per history of present illness and as reviewed below otherwise noncontributory. Physical exam: General: Patient is alert, oriented, and in no acute distress. Patient sitting comfortably on exam table. Vitals stable and reviewed by me. HEENT: Atraumatic, normocephalic, pupils equal and reactive bilaterally, negative for conjunctival pallor or scleral icterus, mucous membranes moist, throat clear, neck supple, nontender, trachea midline. No drooling or trismus noted. No meningeal signs. No hot potato voice noted. Lungs: Clear to auscultation, breath sounds equal bilaterally, chest nontender. Heart: S1S2, regular rate and rhythm without overt murmur Abdomen: Soft, nondistended, nontender. Negative for masses or hepatosplenom egaly. Negative for costovertebral tenderness. Pelvis: Stable nontender. Genitourinary: Deferred. Rectal: Deferred. Skin: Intact, warm, dry. No lesions or rashes noted. Extremities: Atraumatic, negative for cords or calf pain. Neurovascular unremarkable. Neuro: Awake, alert, oriented. Cranial nerves II through XII unremarkable. Cerebellum unremarkable. Motor and sensory unremarkable throughout. Exam nonfocal. Notes: Patient is a 40-year-old female who presents emergency room today with concern of an episode of left-sided facial tingling/left arm tingling that lasted approximately 7 minutes after waking up from a nap with associated low-grade headache. Upon arrival to the ED, patient was initially assessed by Dr. Hernandez who had ruled this not a stroke. Patient was then triaged to the waiting room due to status of the emergency room. Upon my examination, patient has not had any symptoms or recurrence of symptoms for multiple hours. However, will obtain basic lab work, head CT, and reassess patient. CBC shows mild anemia with red blood cells decreased at 3.9, hemoglobin 11.9, and hematocrit of 34.9, otherwise mild derangements of CBC unremarkable. CMP shows shows isolated elevation of BUN at 24, otherwise mild derangements of CMP unremarkable. Troponin negative. TSH within normal limits. hCG negative. Chest x-ray shows no acute cardiopulmonary findings. Head CT shows no acute intracranial pathology. Maxillary sinusitis. Upon reevaluation of patient, she does not have any recurrence of her symptoms today in the ED. Given that patient has been having symptoms of headache, dizziness, and now left-sided facial numbness episode, will treat maxillary sinusitis as this could be a possible contributing factor. Strict return precautions thoroughly discussed with patient. Patient states that she does have an appointment with her soap maker due to her hypertension this coming week and will discuss any further necessary testing. Discussed importance for follow-up with her soap maker and her primary care provider. Voices understanding and is agreeable to plan of care. Denies any further questions or concerns at this time. Diagnostics: He, CMP, hCG, TSH, troponin, head CT without contrast, chest x-ray Therapeutics: None Prescription: Augmentin Impression: Headache Maxillary sinusitis Plan: 1. Take medication as prescribed. You can alternate ibuprofen and Tylenol as directed for pain and discomfort. 2. Follow-up with your primary care provider and soap maker as scheduled and as discussed. Return to the ED as needed and as discussed. Definitive disposition and diagnosis as appropriate pending reevaluation and review of above. headache Pain Score (Numeric/FACES): 2 - Related Data Allergies Allergy/AdvReac Type Severity Reaction Status Date / Time No Known Allergies Allergy Verified 02/13/21 15:51 Home Meds: Home Meds Amoxicillin/Potassium Clav [Augmentin 875-125 Tablet] 1 each PO BID 7 Days #14 tablet 02/13/21 [Rx] Irbesartan [Avapro] 150 mg PO DAILY 02/13/21 [History] hydroCHLOROthiazide [Hydrochlorothiazide] 02/13/21 [History] Past Medical History - Past Health History Medical/Surgical History: Denies Medical/Surgical History Cardiovascular History: Reports: Hypertension KENNEL AIDE History: Reports: Social & Family History - Family History Family Medical History: No Pertinent Family History Cardiac: Reports: Hypertension - Tobacco Use Tobacco Use Status *Q: Former Tobacco User Years of Tobacco use: 20 Packs/Tins Daily: 0.2 Used Tobacco, but Quit: Yes Month/Year Tobacco Last Used: 1 month ago - Caffeine Use Caffeine Use: Reports: Coffee - Recreational Drug Use Recreational Drug Use: No ED ROS GENERAL - Review of Systems Review Of Systems: Comprehensive ROS is negative, except as noted in HPI. ED EXAM, GENERAL - Physical Exam Exam: See Below (See dictation) Course - Vital Signs Last Recorded V/S: Last Vital Signs Temp 97 F 02/13/21 15:44 Pulse 79 02/13/21 20:58 Resp 19 02/13/21 20:58 BP 127/84 02/13/21 20:58 Pulse Ox 98 02/13/21 20:58 - Orders/Labs/Meds Labs: Laboratory Tests 02/13/21 02/13/21 02/13/21 Range/Units 15:54 19:12 19:12 WBC 10.51 (4.0-11.0) K/uL RBC 3.90 L (4.30-5.90) M/uL Hgb 11.9 L (12.0-16.0) g/dL Hct 34.9 L (36.0-46.0) % MCV 89.5 (80.0-98.0) fL MCH 30.5 (27.0-32.0) pg MCHC 34.1 (31.0-37.0) g/dL RDW Std Deviation 40.3 (28.0-62.0) fl RDW Coeff of Holly 13 (11.0-15.0) % Plt Count 372 (150-400) K/uL MPV 10.20 (7.40-12.00) fL Neut % (Auto) 61.7 (48.0-80.0) % Lymph % (Auto) 31.6 (16.0-40.0) % [place] % (Auto) 5.1 (0.0-15.0) % Eos % (Auto) 1.4 (0.0-7.0) % Baso % (Auto) 0.2 (0.0-1.5) % Neut # (Auto) 6.5 H (1.4-5.7) K/uL Lymph # (Auto) 3.3 H (0.6-2.4) K/uL [place] # (Auto) 0.5 (0.0-0.8) K/uL Eos # (Auto) 0.2 (0.0-0.7) K/uL Baso # (Auto) 0.0 (0.0-0.1) K/uL Nucleated RBC % 0.0 /100WBC Nucleated RBCs # 0 K/uL Sodium 138 (136-145) mmol/L Potassium 4.0 (3.5-5.1) mmol/L Chloride 100 (98-107) mmol/L Carbon Dioxide 28.8 (21.0-32.0) mmol/L BUN 24 H (7.0-18.0) mg/dL Creatinine 0.9 (0.6-1.0) mg/dL Est Cr Clr Drug Dosing 65.59 mL/min Estimated GFR (MDRD) > 60.0 ml/min Glucose 103 (74-106) mg/dL POC Glucose 156 H (70-99) mg/dL Calcium 9.4 (8.5-10.1) mg/dL Total Bilirubin 0.4 (0.2-1.0) mg/dL AST 22 (15-37) IU/L ALT 36 (14-63) IU/L Alkaline Phosphatase 83 (46-116) U/L Troponin I < 0.050 (0.000-0.056) ng/mL Total Protein 8.7 H (6.4-8.2) g/dL Albumin 4.3 (3.4-5.0) g/dL Globulin 4.4 H (2.6-4.0) g/dL Albumin/Globulin Ratio 1.0 (0.9-1.6) TSH, Ultra Sensitive 2.43 (0.36-3.74) uIU/mL HCG, Qual (NEG) 02/13/21 Range/Units 19:12 WBC (4.0-11.0) K/uL RBC (4.30-5.90) M/uL Hgb (12.0-16.0) g/dL Hct (36.0-46.0) % MCV (80.0-98.0) fL MCH (27.0-32.0) pg MCHC (31.0-37.0) g/dL RDW Std Deviation (28.0-62.0) fl RDW Coeff of Holly (11.0-15.0) % Plt Count (150-400) K/uL MPV (7.40-12.00) fL Neut % (Auto) (48.0-80.0) % Lymph % (Auto) (16.0-40.0) % [place] % (Auto) (0.0-15.0) % Eos % (Auto) (0.0-7.0) % Baso % (Auto) (0.0-1.5) % Neut # (Auto) (1.4-5.7) K/uL Lymph # (Auto) (0.6-2.4) K/uL [place] # (Auto) (0.0-0.8) K/uL Eos # (Auto) (0.0-0.7) K/uL Baso # (Auto) (0.0-0.1) K/uL Nucleated RBC % /100WBC Nucleated RBCs # K/uL Sodium (136-145) mmol/L Potassium (3.5-5.1) mmol/L Chloride (98-107) mmol/L Carbon Dioxide (21.0-32.0) mmol/L BUN (7.0-18.0) mg/dL Creatinine (0.6-1.0) mg/dL Est Cr Clr Drug Dosing mL/min Estimated GFR (MDRD) ml/min Glucose (74-106) mg/dL POC Glucose (70-99) mg/dL Calcium (8.5-10.1) mg/dL Total Bilirubin (0.2-1.0) mg/dL AST (15-37) IU/L ALT (14-63) IU/L Alkaline Phosphatase (46-116) U/L Troponin I (0.000-0.056) ng/mL Total Protein (6.4-8.2) g/dL Albumin (3.4-5.0) g/dL Globulin (2.6-4.0) g/dL Albumin/Globulin Ratio (0.9-1.6) TSH, Ultra Sensitive (0.36-3.74) uIU/mL HCG, Qual NEGATIVE (NEG) Departure - Departure Time of Disposition: 20:49 Disposition: Home, Self-Care 01 Clinical Impression: Acute sinusitis Qualifiers: Sinusitis location: maxillary Recurrence: non-recurrent Qualified Code(s): J01.00 - Acute maxillary sinusitis, unspecified Headache Qualifiers: Headache chronicity pattern: acute headache Intractability: not intractable - Discharge Information Prescriptions: Amoxicillin/Potassium Clav [Augmentin 875-125 Tablet] 1 each PO BID 7 Days #14 tablet Instructions: Sinusitis, Adult, [id number] Referrals: Roscoe Askew MD [Primary Care Provider] - Forms: ED Department Discharge Additional Instructions: The following information is given to patients seen in the emergency department who are being discharged to home. This information is to outline your options for follow-up care. We provide all patients seen in our emergency department with a follow-up referral. The need for follow-up, as well as the timing and circumstances, are variable depending upon the specifics of your emergency department visit. If you don't have a primary care physician on staff, we will provide you with a referral. We always advise you to contact your personal physician following an emergency department visit to inform them of the circumstance of the visit and for follow-up with them and/or the need for any referrals to a consulting specialist. The emergency department will also refer you to a specialist when appropriate. This referral assures that you have the opportunity for follow-up care with a specialist. All of these measure are taken in an effort to provide you with optimal care, which includes your follow-up. Under all circumstances we always encourage you to contact your private physician who remains a resource for coordinating your care. When calling for follow-up care, please make the office aware that this follow-up is from your recent emergency room visit. If for any reason you are refused follow-up, please contact the [facility] Emergency Department at and asked to speak to the emergency department charge nurse. [facility] [address] [place] [id number] [address] 1. Take medication as prescribed. You can alternate ibuprofen and Tylenol as directed for pain and discomfort. 2. Follow-up with your primary care provider and soap maker as scheduled and as discussed. Return to the ED as needed and as discussed. Sepsis Event Note (ED) - Evaluation Sepsis Screening Result: No Definite Risk
== END 2021-02-13 20:58 | disposition home or self-care (01) ==
LOC: MW.ED 15:39
DX: J01.00 Acute maxillary sinusitis, unspecified (principal); I10 Essential (primary) hypertension; Z87.891 Personal history of nicotine dependence; Z79.899 Other long term (current) drug therapy
CPT/HCPCS: 36415; 70450; 70450-26; 71045; 71045-26; 80053; 82947; 84443; 84484; 84703; 85025; 93005; 99284-25

== ENCOUNTER 2022-01-24 14:50 | Emergency (ER) | payer BC | END 2022-01-24 16:44 | disposition left against medical advice (07) | LOC: MW.ED 14:50 | DX: Z53.21 Procedure and treatment not carried out due to patient leaving prior to being seen by health care provider (principal) ==

== ENCOUNTER 2024-01-09 17:00 | Emergency (ER) | payer SELFPAY ==
[2024-01-09 17:22] LABS: BASOPHILS ABSOLUTE AUTO 0.03 K/uL (0.00-0.20); BASOPHILS PERCENT AUTO 0.2 % (0.0-1.0); EOSINOPHILS ABSOLUTE AUTO 0.05 K/uL (0.00-0.45); EOSINOPHILS PERCENT AUTO 0.4 % (0.0-6.0); HEMATOCRIT 29.9 % (37.0-47.0); HEMOGLOBIN 10.1 g/dL (12.0-16.0); IMMATURE GRAN ABSOLUTE AUTO 0.08 K/uL (0.00-0.05); IMMATURE GRAN PERCENT AUTO 0.6 % (0.0-0.4); LYMPHOCYTES ABSOLUTE AUTO 2.49 K/uL (1.00-4.80); MEAN CORPUSCULAR HEMOGLOBIN 30.2 pg (28.0-32.0); MEAN CORPUSCULAR HGB CONC 33.8 g/dL (32.0-36.0); MEAN CORPUSCULAR VOLUME 89.5 fL (83.0-99.0); MEAN PLATELET VOLUME 10.4 fL (9.4-12.3); MONOCYTES ABSOLUTE AUTO 0.34 K/uL (0.00-0.80); MONOCYTES PERCENT AUTO 2.5 % (0.0-8.0); NEUTROPHILS ABSOLUTE AUTO 10.88 K/uL (1.80-7.70); NEUTROPHILS PERCENT AUTO 78.3 % (41.0-71.0); PLATELET COUNT,PLT 209 K/uL (150-400); RED BLOOD CELL COUNT 3.34 M/uL (4.10-5.30); WHITE BLOOD CELL COUNT,WBC 13.87 K/uL (3.9-11.3)
[2024-01-09 17:48] LABS: A/G RATIO 1.2 (0.9-1.6); ALBUMIN 3.6 g/dL (3.4-5.0); BILIRUBIN TOTAL 0.4 mg/dL (0.2-1.0); CALCIUM 8.1 mg/dL (8.5-10.1); CARBON DIOXIDE,CO2 24.2 mmol/L (21.0-32.0); CREATININE 0.8 mg/dL (0.6-1.0); EST CRCL DRUG DOSING (CG) 71.71 mL/min; POTASSIUM,K 3.9 mmol/L (3.5-5.1); PROTEIN TOTAL,TP 6.7 g/dL (6.4-8.2)
[2024-01-09] MEDS ORDERED: Acetaminophen/Codeine 300-30 MG Tab ONE (18:35)
[2024-01-09] MEDS: Acetaminophen/Codeine 120-12 MG/5 ML Soln 5 ML UD Cup PO ONE (19:01)
[2024-01-09] MEDS: traMADol 50 MG Tab PO ONE (19:04)
[2024-01-09 19:17] LABS: CORONAVIRUS COVID-19 NAA NEGATIVE (NEGATIVE); INFLUENZA A NAA NEGATIVE (NEGATIVE); INFLUENZA B NAA NEGATIVE (NEGATIVE)
[2024-01-09] MEDS: Amoxicillin/Clavulanate K 875-125 MG Tab PO ONE (20:20)
[2024-01-09] MEDS: Bacitracin Oint 1 GM U/D Packet TOP ONE (20:20)
== END 2024-01-09 20:26 | disposition home or self-care (01) ==
LOC: MW.ED 17:00
DX: J01.00 Acute maxillary sinusitis, unspecified (principal); R55 Syncope and collapse; D64.9 Anemia, unspecified; I10 Essential (primary) hypertension; Z76.0 Encounter for issue of repeat prescription; Z75.8 Other problems related to medical facilities and other health care; Z79.899 Other long term (current) drug therapy; Z87.891 Personal history of nicotine dependence
CPT/HCPCS: 0240U; 36415; 70450; 70486; 71045; 80053; 84484; 85025; 99284; A9270; 93005; 93010

== ENCOUNTER 2024-05-10 06:28 | Emergency (ER) | payer BC ==
[2024-05-10] MEDS: Sodium Chloride 0.9% 1,000 ML IV ONE (06:58)
[2024-05-10] MEDS ORDERED: Sodium Chloride 0.9% 1,000 ML IV STA (07:15)
[2024-05-10 07:24] LABS: HEMATOCRIT 31.3 % (37.0-47.0); HEMOGLOBIN 10.3 g/dL (12.0-16.0); MEAN CORPUSCULAR HEMOGLOBIN 29.5 pg (28.0-32.0); MEAN CORPUSCULAR HGB CONC 32.9 g/dL (32.0-36.0); MEAN CORPUSCULAR VOLUME 89.7 fL (83.0-99.0); MEAN PLATELET VOLUME 10.6 fL (9.4-12.3); PLATELET COUNT,PLT 212 K/uL (150-400); RED BLOOD CELL COUNT 3.49 M/uL (4.10-5.30); WHITE BLOOD CELL COUNT,WBC 9.42 K/uL (3.9-11.3)
[2024-05-10 07:39] LABS: ALANINE AMINOTRANSFERASE,ALT 18 IU/L (14-63); ALBUMIN 3.2 g/dL (3.4-5.0); ALKALINE PHOSPHATASE 60 U/L (46-116); ASPARTATE AMNIOTRANSFERASE,AST 18 IU/L (15-37); BILIRUBIN TOTAL 0.1 mg/dL (0.2-1.0); BLOOD UREA NITROGEN,BUN 50 mg/dL (7.0-18.0); CALCIUM 8.3 mg/dL (8.5-10.1); CARBON DIOXIDE,CO2 24.4 mmol/L (21.0-32.0); CHLORIDE,CL 105 mmol/L (98-107); CREATININE 0.8 mg/dL (0.6-1.0); EST CRCL DRUG DOSING (CG) 70.98 mL/min; GLUCOSE RANDOM 155 mg/dL (74-106); MAGNESIUM 1.9 mg/dL (1.8-2.4); PROTEIN TOTAL,TP 6.4 g/dL (6.4-8.2); SODIUM,NA 140 mmol/L (136-145)
[2024-05-10 07:42] LABS: BAND ABSOLUTE MAN 0.09; BAND PERCENT MAN 1 %; EOSINOPHILS ABSOLUTE MAN 0.19 K/uL (0.00-0.45); EOSINOPHILS PERCENT MAN 2 % (0-6); ESTIMATED GFR 93 mL/min (>60); ETHANOL BLOOD MEDICAL < 3.0 mg/dL; LYMPHOCYTES ABSOLUTE MAN 5.28 K/uL (1.00-4.80); LYMPHOCYTES PERCENT MAN 56 % (24-44); MONOCYTES ABSOLUTE MAN 0.47 K/uL (0.00-0.80); MONOCYTES PERCENT MAN 5 % (0-8); SEG NEUTROPHILS ABSOLUTE MAN 3.39 K/uL (1.80-7.70); SEG NEUTROPHILS PERCENT MAN 36 % (41-71)
== END 2024-05-10 08:21 | disposition home or self-care (01) ==
LOC: MW.ED 06:28
DX: R55 Syncope and collapse (principal); M25.522 Pain in left elbow; I10 Essential (primary) hypertension; F17.210 Nicotine dependence, cigarettes, uncomplicated; Z75.8 Other problems related to medical facilities and other health care
CPT/HCPCS: 36415; 71045; 80053; 80307; 83735; 84484; 84703; 85025; 85379; 93005; 96360; 99284; J7030

== ENCOUNTER 2025-04-12 16:14 | Observation (INO) | payer BC ==
[2025-04-12] MEDS ORDERED: Sodium Chloride 0.9% 10 ML Syringe FLUSH PRN ×2 (16:37→20:17)
[2025-04-12] MEDS ORDERED: Sodium Chloride 0.9% 2.5 ML Syringe FLUSH PRN ×2 (16:37→20:17)
[2025-04-12] MEDS: Alum Hydrox/Mag Hydrox/Simeth 15 ML, Lidocaine 2% 5 ML PO ONE (16:42)
[2025-04-12 16:49] LABS: BASOPHILS ABSOLUTE AUTO 0.03 K/uL (0.00-0.20); BASOPHILS PERCENT AUTO 0.3 % (0.0-1.0); EOSINOPHILS ABSOLUTE AUTO 0.21 K/uL (0.00-0.45); EOSINOPHILS PERCENT AUTO 2.2 % (0.0-6.0); IMMATURE GRAN ABSOLUTE AUTO 0.04 K/uL (0.00-0.05); IMMATURE GRAN PERCENT AUTO 0.4 % (0.0-0.4); LYMPHOCYTES ABSOLUTE AUTO 2.72 K/uL (1.00-4.80); LYMPHOCYTES PERCENT AUTO 28.8 % (24.0-44.0); MEAN PLATELET VOLUME 10.3 fL (9.4-12.3); MONOCYTES ABSOLUTE AUTO 0.51 K/uL (0.00-0.80); MONOCYTES PERCENT AUTO 5.4 % (0.0-8.0); NEUTROPHILS ABSOLUTE AUTO 5.93 K/uL (1.80-7.70); NEUTROPHILS PERCENT AUTO 62.9 % (41.0-71.0); NRBC ABSOLUTE 0.00 K/uL (0.00-0.02); NRBC PERCENT 0.0 /100WBC (0.0-0.2); PLATELET COUNT,PLT 217 K/uL (150-400); RED BLOOD CELL COUNT 4.57 M/uL (4.10-5.30); WHITE BLOOD CELL COUNT,WBC 9.44 K/uL (3.9-11.3)
[2025-04-12 16:57] LABS: INR 1.03 (0.86-1.11); PTT,PARTIAL THROMBOPLSTIN TIME 28.1 SEC (23.9-30.7)
[2025-04-12 17:06] LABS: A/G RATIO 0.8 (0.9-1.6); ALANINE AMINOTRANSFERASE,ALT 19.0 IU/L (14-63); ASPARTATE AMNIOTRANSFERASE,AST 22.0 IU/L (15-37); BILIRUBIN TOTAL 0.5 mg/dL (0.2-1.0); BLOOD UREA NITROGEN,BUN 13.0 mg/dL (7.0-18.0); CARBON DIOXIDE,CO2 30.1 mmol/L (21.0-32.0); CHLORIDE,CL 101.0 mmol/L (98-107); CREATININE 0.8 mg/dL (0.6-1.0); EST CRCL DRUG DOSING (CG) 72.9 mL/min; GLUCOSE RANDOM 94.0 mg/dL (74-106); POTASSIUM,K 3.7 mmol/L (3.5-5.1); PROTEIN TOTAL,TP 7.8 g/dL (6.4-8.2); SODIUM,NA 138.0 mmol/L (136-145)
[2025-04-12 17:13] LABS: ESTIMATED GFR 93.0 mL/min (>60)
[2025-04-12] MEDS ORDERED: niCARdipine/Normal Saline 20 MG/200 ML BAG IV SCH (17:15)
[2025-04-12] MEDS: hydrALAZINE 20 MG/ML SDV IVPUSH ONE (17:26)
[2025-04-12] MEDS: niCARdipine/Normal Saline 20 MG/200 ML BAG IV SCH ×2 (17:47→18:05)
[2025-04-12] MEDS: Iopamidol 755 MG/ML 500 ML Multipack Bottle IVPUSH STA (19:52)
[2025-04-12] MEDS ORDERED: Labetalol 100 MG/20 ML MDV IVPUSH PRN (20:17)
[2025-04-12] MEDS ORDERED: Naloxone 0.4 MG/ML SDV IVPUSH PRN (20:28)
[2025-04-13 05:35] LABS: BASOPHILS ABSOLUTE AUTO 0.04 K/uL (0.00-0.20); BASOPHILS PERCENT AUTO 0.5 % (0.0-1.0); EOSINOPHILS ABSOLUTE AUTO 0.31 K/uL (0.00-0.45); EOSINOPHILS PERCENT AUTO 3.9 % (0.0-6.0); IMMATURE GRAN ABSOLUTE AUTO 0.06 K/uL (0.00-0.05); IMMATURE GRAN PERCENT AUTO 0.8 % (0.0-0.4); LYMPHOCYTES ABSOLUTE AUTO 2.60 K/uL (1.00-4.80); LYMPHOCYTES PERCENT AUTO 32.5 % (24.0-44.0); MEAN PLATELET VOLUME 9.9 fL (9.4-12.3); MONOCYTES ABSOLUTE AUTO 0.48 K/uL (0.00-0.80); MONOCYTES PERCENT AUTO 6.0 % (0.0-8.0); NEUTROPHILS ABSOLUTE AUTO 4.50 K/uL (1.80-7.70); NEUTROPHILS PERCENT AUTO 56.3 % (41.0-71.0); NRBC ABSOLUTE 0.00 K/uL (0.00-0.02); NRBC PERCENT 0.0 /100WBC (0.0-0.2); PLATELET COUNT,PLT 220 K/uL (150-400); RED BLOOD CELL COUNT 4.50 M/uL (4.10-5.30); WHITE BLOOD CELL COUNT,WBC 7.99 K/uL (3.9-11.3)
[2025-04-13 06:05] LABS: A/G RATIO 0.8 (0.9-1.6); ALANINE AMINOTRANSFERASE,ALT 18.0 IU/L (14-63); ASPARTATE AMNIOTRANSFERASE,AST 14.0 IU/L (15-37); BILIRUBIN TOTAL 0.4 mg/dL (0.2-1.0); BLOOD UREA NITROGEN,BUN 13.0 mg/dL (7.0-18.0); CARBON DIOXIDE,CO2 29.5 mmol/L (21.0-32.0); CHLORIDE,CL 103.0 mmol/L (98-107); CREATININE 0.8 mg/dL (0.6-1.0); EST CRCL DRUG DOSING (CG) 70.24 mL/min; ESTIMATED GFR 93.0 mL/min (>60); GLUCOSE RANDOM 101.0 mg/dL (74-106); POTASSIUM,K 4.0 mmol/L (3.5-5.1); PROTEIN TOTAL,TP 7.0 g/dL (6.4-8.2); SODIUM,NA 140.0 mmol/L (136-145)
[2025-04-13 10:07] VITALS: BP 136/76; PULSE 66
[2025-04-13] MEDS: Hydrochlorothiazide/Losartan 12.5-50 mg Tab PO SCH (10:25)
== END 2025-04-13 10:30 | disposition home or self-care (01) ==
LOC: MW.ED 16:14 → MW.MS 20:16
PROVIDERS: ADMIT Family Medicine; ATTEND Family Medicine
DX: I16.0 Hypertensive urgency (principal); I10 Essential (primary) hypertension; F17.200 Nicotine dependence, unspecified, uncomplicated; Z79.899 Other long term (current) drug therapy
CPT/HCPCS: 36415; 70450; 70450-26; 71046; 71046-26; 71275; 71275-26; 74174; 74174-26; 80053; 83690; 83735; 84484; 84703; 85025; 85610; 85730; A9270-GY; J0360; J2404; Q9967